=== PATIENT | female | born 1945 | race Caucasian/White ===

== ENCOUNTER 2021-04-09 11:05 | Outpatient (CLI) | payer MEDICARE, OTHER, SELFPAY ==
[2021-04-09 12:42] LABS: Basophils # 0.1 10^3/uL (0.0-0.1); Basophils % 0.7 %; Eosinophils # 0.2 10^3/uL (0.0-0.8); Eosinophils % 3.4 %; Hematocrit 41.1 % (37.0-47.0); Hemoglobin 13.3 g/dL (11.5-15.3); Lymphocytes # 1.7 10^3/uL (0.8-4.8); Lymphocytes % 25.5 %; Mean Corpuscular HGB Conc 32.4 g/dL (30.0-36.0); Mean Corpuscular Hemoglobin 30.1 pg (28.0-34.0); Mean Platelet Volume 9.6 fL (7.4-10.4); Monocytes # 0.5 10^3/uL (0.2-0.9); Monocytes % 7.6 %; Neutrophils # 4.22 10^3/uL (1.8-7.7); Neutrophils % 62.7 %; Nucleated Red Blood Cells % 0 %; Platelet Count 391 10^3/cmm (130-400); Red Blood Count 4.42 10^6/uL (4.1-5.3); Red Cell Distribution Width 12.7 % (12.1-15.1); White Blood Count 6.7 10^3/uL (4.0-10.0)
--- NOTE | 2021-04-09 14:32 | ONC CON_ITS ---
Dr. Ramirez New Patient Note Patient: Ruthy Ayala Unit #: [id number]: [id number] Dicatated By: Israel Ramirez M.D.Date of Visit: Apr 09, 2021 Onc MED New Patient/Consult Referring Physician: Dr. CASANDRA BRASHER MD History of Present Illness: Ms. Ruthy Ayala, is a 75-year-old female with a history of arthritis involving bilateral hands and C-spine, recently started having vaginal spotting in January 2021, was evaluated by [facility] PROCESSING [facility]PERATOR and as per patient biopsies were taken and it was normal and she was told her spotting was due to vaginal dryness, at that time during her routine follow-up lab work-up done on January 16, 2021 showed white blood count 6 hemoglobin 13.7 hematocrit 42.4 platelets 366,000 normal being 163-337,000, repeat labs done on February 19, 2021 showed white blood count 6.6 hemoglobin 13.2 hematocrit 39.6 platelets 377,000 normal being less than 400,000 and repeat CBC on April 01, 2021 showed white blood count 6.3 hemoglobin 13.6 hematocrit 41.1 platelets 418,000, patient was referred to hematology clinic for evaluation for mildly elevated isolated thrombocytosis. Patient said after [employer] PROCESSING OPERATOR evaluation her vaginal spotting resolved within couple of weeks. And she also has arthritis involving her bilateral hands and C-spine, which is, waxing and waning. Denies any night sweats denies any weight loss denies any headache and fever denies any peripheral lymphadenopathy denies any abdominal fullness denies any sinus problem denies any dysuria or hematuria denies any nausea or vomiting denies any abdominal pain denies any melena hematochezia. Patient denies any smoking or alcohol use. Past Medical History: Ms. Ayala's medical history consists of chronic kidney disease (stage III), gastroesophageal reflux disease, hyperlipidemia, hypertension, migraine headaches, osteoarthritis, and osteopenia. Past Surgical History: Ms. Grigsbys surgical/procedural history consists of breast biopsy - X3, cholecystectomy, left breast excisional biopsy, right breast excisional biopsy, tubal ligation, left breast core needle biopsy in 2015, cystourethroscopy in 2015, cataract excision in 2014, left knee replacement in 2010, and cholecystectomy in 1995. Medications: Amitriptyline HCl 1 Tablet (of 10 mg) Oral t.i.d., Fenofibrate 1 Tablet (of 54 mg) Oral daily, Hyzaar 1 Tablet (of 50-12.5 mg) Oral daily, Metoprolol Succinate ER 1 Tablet (of 100 mg) Tablet SR 24 HR Oral daily, Nifedical XL 1 Tablet (of 60 mg) Tablet SR 24 HR Oral daily, Omeprazole 1 Capsule (of 20 mg) Capsule Delayed Release Oral daily, PreserVision/Lutein 1 Capsule Oral b.i.d. Allergies: Amoxicillin and Lisinopril. Social History: Ms. Ayala is . Ms. Ayala has never smoked. She has no history of drinking. Family History: Ms. Ayala's mother at age 84: heart disease, and lung cancer, and pancreatic cancer. Ms. Ayala has 1 brother who is alive. She has 1 sister who is alive. Review Of Symptoms: Review of Systems is not available for this patient. Vital Signs: Performed on Apr 09, 2021 13:05: 0, 27.69, 1.83 sq.m, 65 in, 94 % (LOW), 70 /min, 18 /min, 124/75 mm(hg), 97.5 F (LOW), and 166.4 lbs (HIGH). Performance Status: 0 - Fully active, able to carry on all predisease activities without restrictions. (ECOG) Physical Examination: ENMT - No mouth sores, no thrush, no jaundice, No cervical lymphadenopathy, Respiratory - Lungs are clear to auscultation, Cardiovascular - Regular rate and rhythm of heart, Abdomen - Soft, bowel sounds present, Extremities - No visible edema. Lab/Imaging: Most recent lab results are not available for this patient. Impression: Isolated thrombocytosis initially seen on January 2021 during routine follow-up, etiology unclear could be reactive as patient was having vaginal spotting in January 2021 which lasted couple of weeks. Or due to arthritis flare or myeloproliferative disorder but less likely Recent history of vaginal spotting, for which she was evaluated in January 2021, which was confirmed due to vaginal dryness as patient underwent [facility] PROCESSING OPERATOR evaluation and after WORD PROCESSING OPERATOR intervention it lasted only couple of weeks now resolved Arthritis involving bilateral hands and C-spine Hypertension GERD Plan: Discussed with patient regarding her labs white blood count 6.7 hemoglobin 13.3 hematocrit 41.1 platelets 391,000 normal being less than 400,000 with normal differential Clinically, patient doing well with no new signs symptoms, no B symptoms on exam there is no peripheral lymphadenopathy or organomegaly Repeat CBC shows resolution of mild isolated thrombocytosis. Etiology of her mild isolated thrombocytosis could be reactive to vaginal spotting for which she was evaluated in January 2021 and resolved within couple of weeks and her CBC repeated in February 2021 showed resolution of mild isolated thrombocytosis but repeat labs done in March showed mildly elevated platelet count. And CBC repeated today showed resolution of mild isolated thrombocytosis with normal hemoglobin and white blood cell,, etiology of her mild isolated thrombocytosis could be reactive to vaginal spotting and vaginitis due to dryness other possibility could be due to arthritis flare, and early myeloproliferative disorder like essential thrombocytosis but less likely. At this point, no further work-up from hematological point of view rather observation, she will return to clinic in 1 month with CBC if it shows normal CBC, will see her on as-needed basis Signed By: Israel Ramirez M.D. <<Signature on File>>
== END 2021-04-09 11:06 | disposition home or self-care (01) ==
PROVIDERS: PCP Family Medicine; Visit Provider Internal Medicine Hematology & Oncology
DX: D47.3 Essential (hemorrhagic) thrombocythemia (principal); M19.041 Primary osteoarthritis, right hand; M19.042 Primary osteoarthritis, left hand; M50.30 Other cervical disc degeneration, unspecified cervical region; I10 Essential (primary) hypertension; K21.9 Gastro-esophageal reflux disease without esophagitis; Z79.899 Other long term (current) drug therapy
CPT/HCPCS: 36415; 85025; 99204

== ENCOUNTER 2021-05-07 11:03 | Outpatient (CLI) | payer MEDICARE, OTHER, SELFPAY ==
[2021-05-07 12:15] LABS: Basophils # 0.1 10^3/uL (0.0-0.1); Basophils % 0.7 %; Eosinophils # 0.3 10^3/uL (0.0-0.8); Eosinophils % 3.4 %; Hematocrit 41.7 % (37.0-47.0); Hemoglobin 13.4 g/dL (11.5-15.3); Mean Corpuscular HGB Conc 32.1 g/dL (30.0-36.0); Mean Corpuscular Hemoglobin 29.8 pg (28.0-34.0); Mean Corpuscular Volume 92.9 fl (81-99); Mean Platelet Volume 10.3 fL (7.4-10.4); Monocytes # 0.6 10^3/uL (0.2-0.9); Monocytes % 8.5 %; Neutrophils # 4.41 10^3/uL (1.8-7.7); Neutrophils % 60.1 %; Nucleated Red Blood Cells % 0 %; Platelet Count 322 10^3/cmm (130-400); Red Blood Count 4.49 10^6/uL (4.1-5.3); Red Cell Distribution Width 12.9 % (12.1-15.1); White Blood Count 7.3 10^3/uL (4.0-10.0)
[2021-05-07 13:14] LABS: Slide Review Slide Review Perform
--- NOTE | 2021-05-07 13:50 | ONC FU_ITS ---
Dr. Ramirez follow up note Patient: Ruthy Ayala Unit #: [id number]: 1945 Dicatated By: Israel Ramirez M.D.Date of Visit:May 07, 2021 Onc Med Follow-up/Prog Note History of Present Illness: Ms. Ruthy Ayala, is a 75-year-old female with a history of arthritis involving bilateral hands and C-spine, recently started having vaginal spotting in January 2021, was evaluated by [employer] and as per patient biopsies were taken and it was normal and she was told her spotting was due to vaginal dryness, at that time during her routine follow-up lab work-up done on January 16, 2021 showed white blood count 6 hemoglobin 13.7 hematocrit 42.4 platelets 366,000 normal being 163-337,000, repeat labs done on February 19, 2021 showed white blood count 6.6 hemoglobin 13.2 hematocrit 39.6 platelets 377,000 normal being less than 400,000 and repeat CBC on April 01, 2021 showed white blood count 6.3 hemoglobin 13.6 hematocrit 41.1 platelets 418,000, patient was referred to hematology clinic for evaluation for mildly elevated isolated thrombocytosis. Patient said after [employer] evaluation her vaginal spotting resolved within couple of weeks. And she also has arthritis involving her bilateral hands and C-spine, which is, waxing and waning. Denies any night sweats denies any weight loss denies any headache and fever denies any peripheral lymphadenopathy denies any abdominal fullness denies any sinus problem denies any dysuria or hematuria denies any nausea or vomiting denies any abdominal pain denies any melena hematochezia. Patient denies any smoking or alcohol use. Came for follow-up, denies any specific complaints, no fever chills, no nausea or vomiting, no diarrhea constipation, no headaches blurred vision or double vision, denies any vaginal bleeding or dryness. No joint pains. Medications: Amitriptyline HCl 1 Tablet (of 10 mg) Oral t.i.d., Fenofibrate 1 Tablet (of 54 mg) Oral daily, Hyzaar 1 Tablet (of 50-12.5 mg) Oral daily, Metoprolol Succinate ER 1 Tablet (of 100 mg) Tablet SR 24 HR Oral daily, Nifedical XL 1 Tablet (of 60 mg) Tablet SR 24 HR Oral daily, Omeprazole 1 Capsule (of 20 mg) Capsule Delayed Release Oral daily, PreserVision/Lutein 1 Capsule Oral b.i.d. Allergies: Amoxicillin and Lisinopril. Review of Systems: Review of Systems is not available for this patient. Vital Signs: Vitals are not available for this patient. Performance Status: 0 - Fully active, able to carry on all predisease activities without restrictions. (ECOG) Physical Examination: ENMT - No mouth sores, no thrush, no jaundice, no cervical lymphadenopathy, Respiratory - Lungs are clear to auscultation, Cardiovascular - Regular rate and rhythm of heart, Abdomen - Soft, bowel sounds present, Extremities - No visible edema. Lab/Imaging: Most recent lab results are not available for this patient. Impression: Self-limiting,Isolated thrombocytosis initially seen on January 2021 during routine follow-up, etiology unclear could be reactive as patient was having vaginal spotting in January 2021 which lasted couple of weeks. Or due to arthritis flare or myeloproliferative disorder but less likely Recent history of vaginal spotting, for which she was evaluated in January 2021, which was confirmed due to vaginal dryness as patient underwent [facility] evaluation and after [facility] intervention it lasted only couple of weeks now resolved Arthritis involving bilateral hands and C-spine Hypertension GERD Plan: Discussed with patient regarding her labs white blood count 7.2 hemoglobin 13.4 hematocrit 41.7 platelets 322,000 with a normal differential Clinically, patient is doing well with no new signs symptoms or follow-up labs shows resolution of isolated thrombocytosis, and now CBC is within normal range, no further work-up, at this point we will see her on as-needed basis Signed By: Israel Ramirez M.D. <<Signature on File>>
== END 2021-05-07 11:04 | disposition home or self-care (01) ==
LOC: ONCMED 11:08
PROVIDERS: PCP Family Medicine; Visit Provider Internal Medicine Hematology & Oncology
DX: D47.3 Essential (hemorrhagic) thrombocythemia (principal); M19.042 Primary osteoarthritis, left hand; M19.041 Primary osteoarthritis, right hand; M47.892 Other spondylosis, cervical region; K21.9 Gastro-esophageal reflux disease without esophagitis; Z79.899 Other long term (current) drug therapy
CPT/HCPCS: 36415; 85025; 99214